=== PATIENT | female | born 1940 | race Caucasian/White ===

== ENCOUNTER → 2016-11-24 | Outpatient (CLI) | payer MEDICARE ==
[~2016-11-24] MED LIST: FLON0.053; LEVO100T60 PO; LEVO500T3 PO; XANA1TAB6 PO
[2016-11-24 10:15] LABS: AUTOMATED NEUTROPHIL # 2.8 TH/MM3 (1.8-7.7); BASOPHIL % 0.5 % (0.0-2.0); EOSINOPHIL # 0.2 TH/MM3 (0-0.4); EOSINOPHIL % 2.7 % (0.0-4.0); HEMATOCRIT 39.7 % (35.0-46.0); HEMO FLAGS DIFF FINAL; LYMPH % 35.3 % (9.0-44.0); LYMPHOCYTE # 2.1 TH/MM3 (1.0-4.8); MEAN CELL VOLUME 90.6 FL (80.0-100.0); MEAN CORPUSCULAR HEMOGLOBIN 29.9 PG (27.0-34.0); NEUT % 47.5 % (16.0-70.0); PLATELET COUNT 227 TH/MM3 (150-450); RED BLOOD COUNT 4.38 MIL/MM3 (4.00-5.30); RED CELL DISTRIBUTION WIDTH 13.5 % (11.6-17.2); WHITE BLOOD COUNT 5.9 TH/MM3 (4.0-11.0)
[2016-11-24 10:38] LABS: ALKALINE PHOSPHATASE 39 U/L (45-117); ALT (GPT) 22 U/L (10-53); ANION GAP 7 MEQ/L (5-15); AST (GOT) 15 U/L (15-37); BICARBONATE 29.6 MEQ/L (21.0-32.0); BLOOD UREA NITROGEN 20 MG/DL (7-18); CHLORIDE 100 MEQ/L (98-107); FREE T4 0.97 NG/DL (0.76-1.46); GLOMERULAR FILTRATION RATE 57 ML/MIN (>89); GLUCOSE,FASTING 93 MG/DL (74-99); HDL CHOLESTEROL 72.6 MG/DL (40.0-60.0); LDL CHOLESTEROL 179 MG/DL (0-99); POTASSIUM 4.1 MEQ/L (3.5-5.1); SODIUM (NA) 137 MEQ/L (136-145); TOTAL BILIRUBIN ADULT 0.4 MG/DL (0.2-1.0)
== END ==
LOC: CLAB 09:38
PROVIDERS: ATTEND Family Medicine
DX: E78.2 Mixed hyperlipidemia (principal); E03.9 Hypothyroidism, unspecified; F41.1 Generalized anxiety disorder; Z85.43 Personal history of malignant neoplasm of ovary
CPT/HCPCS: 36415; 80053; 80061; 84439; 84443; 85025

== ENCOUNTER → 2017-04-30 | Outpatient (CLI) | payer MEDICARE ==
[2017-04-30 13:00] LABS: HEMATOCRIT 37.9 % (35.0-46.0); MEAN CELL VOLUME 92.9 FL (80.0-100.0); MEAN CORPUSCULAR HEMOGLOBIN 30.9 PG (27.0-34.0); MEAN CORPUSCULAR HGB CONC 33.2 % (32.0-36.0); PLATELET COUNT 224 TH/MM3 (150-450); RED BLOOD COUNT 4.08 MIL/MM3 (4.00-5.30); RED CELL DISTRIBUTION WIDTH 13.6 % (11.6-17.2); REVIEW FLAG FINAL; WHITE BLOOD COUNT 5.5 TH/MM3 (4.0-11.0)
[2017-04-30 13:27] LABS: ANION GAP 8 MEQ/L (5-15); AST (GOT) 20 U/L (15-37); BICARBONATE 26.1 MEQ/L (21.0-32.0); BLOOD UREA NITROGEN 18 MG/DL (7-18); CHLORIDE 105 MEQ/L (98-107); GLOMERULAR FILTRATION RATE 55 ML/MIN (>89); GLUCOSE,FASTING 91 MG/DL (74-99); POTASSIUM 4.1 MEQ/L (3.5-5.1); SODIUM (NA) 139 MEQ/L (136-145)
[2017-04-30 13:28] LABS: ALT (GPT) 28 U/L (10-53)
[2017-04-30 13:33] LABS: ALKALINE PHOSPHATASE 40 U/L (45-117); FOLLICLE STIMULATING HORMONE 1.2 mIU/mL; LUTEINIZING HORMONE 0.2 mIU/mL; TOTAL BILIRUBIN ADULT 0.5 MG/DL (0.2-1.0)
[2017-05-03 23:53] LABS: SEX HORMONE BINDING GLOBULIN 64 nmol/L (14-73)
[2017-05-05 10:03] LABS: BIOAVAILABLE TESTOSTERONE <0.4 ng/dL; ESTRADIOL <10 pg/mL
== END ==
LOC: CLAB 12:34
DX: F52.22 Female sexual arousal disorder (principal); R68.82 Decreased libido; R53.83 Other fatigue
CPT/HCPCS: 36415; 80053; 82670; 83001; 83002; 84270; 84402; 84403; 84410; 85027

== ENCOUNTER → 2017-06-08 | Outpatient (CLI) | payer MEDICARE ==
[2017-06-08 13:44] LABS: FOLLICLE STIMULATING HORMONE 0.6 mIU/mL; LUTEINIZING HORMONE 0.2 mIU/mL
== END ==
LOC: CLAB 12:46
DX: F52.22 Female sexual arousal disorder (principal); N95.1 Menopausal and female climacteric states; E34.8 Other specified endocrine disorders; R53.83 Other fatigue; R68.82 Decreased libido
CPT/HCPCS: 36415; 82670; 83001; 83002; 84270; 84403; 84410

== ENCOUNTER → 2017-07-21 | Outpatient (CLI) | payer MEDICARE ==
[2017-07-21 13:03] LABS: FOLLICLE STIMULATING HORMONE 0.7 mIU/mL; LUTEINIZING HORMONE 0.4 mIU/mL
[2017-07-25 15:39] LABS: BIOAVAILABLE TESTOSTERONE 9.8 ng/dL
== END ==
LOC: CLAB 12:09
DX: F52.22 Female sexual arousal disorder (principal); N95.1 Menopausal and female climacteric states; E34.8 Other specified endocrine disorders; R53.83 Other fatigue; R68.82 Decreased libido
CPT/HCPCS: 36415; 82670; 83001; 83002; 84270; 84403; 84410

== ENCOUNTER → 2017-09-22 | Outpatient (CLI) | payer MEDICARE ==
[2017-09-22 11:58] LABS: LUTEINIZING HORMONE 0.3 mIU/mL
[2017-09-24 17:51] LABS: IGF BINDING PROTEIN-3 1.7 mg/L (2.5-5.7)
[2017-09-24 19:55] LABS: BIOAVAILABLE TESTOSTERONE 8.2 ng/dL; ESTRADIOL 56 pg/mL; FREE TESTOSTERONE 2.77 ng/dL (0.06-0.79); TOTAL TESTOSTERONE 154 ng/dL (8-60)
== END ==
LOC: CLAB 10:01
DX: F52.22 Female sexual arousal disorder (principal); N95.1 Menopausal and female climacteric states; E34.8 Other specified endocrine disorders; R53.83 Other fatigue; R68.82 Decreased libido
CPT/HCPCS: 36415; 82670; 83001; 83002; 83519; 84270; 84305; 84403; 84410

== ENCOUNTER → 2017-11-05 | Day surgery (SDC) | payer OTHER ==
[~2017-11-05] MED LIST changes: +ACETAMINOPHEN 1000 MG/100 ML 100 ML IV ONE; +ACETAMINOPHEN/HYDROcodone 325 MG/5 MG TAB ONE; +BALANCED SALT SOLN OPHT IRRIG 15 ML BTL ONE; +LACTATED RINGER'S 1000 ML INJ 1,000 ML ONE; +LIDOCAINE 1%/EPINEPHrine 1:100,000 SOLN 30 ML VIAL ONE; +LIDOCAINE 2%/EPINEPHrine PF 1:200,000 20ML SDV ONE; +MIDAZOLAM HCL 2 MG/2 ML VIAL ONE; +ONDANSETRON HCL 4 MG/2 ML VIAL IV PUSH ONE; +PROPOFOL 200 MG/20 ML AMP IV ONE; +ceFAZolin INJ 1,000 MG VIAL ONE
--- NOTE | 2017-11-05 11:11 | TN ---
cc: Brian Arce MD DATE OF SURGERY: 11/05/2017 PREOPERATIVE DIAGNOSES: Facial aging. Upper blepharochalasia. POSTOPERATIVE DIAGNOSIS: Facial aging. PROCEDURE: Cervicofacial rhytidectomy. SURGEON: Brian Arce MD DRUG SAFETY ASSOCIATE: Ariadna Sargent MS4 ANESTHESIA: LMA general plus a total of 180 mL of tumescent fluid. We also did some fat injections, a total of 25 mL. PROCEDURE: She was properly consented, marked, anesthetized. The skin was sterilized with Microcyn and sterile draping was applied. Local anesthetic was infiltrated. Harvesting of the fat was done from the lower abdomen for a grand total of approximately 80 mL, suitable for injection approximately 25 of those that were applied systematically on the episcopal, nasolabial fold, marionette lines and chin area. I proceeded and elevated the cervicofacial flap through previous incisions and plicate the SMAS with 4-0 Mersilene superiorly and the platysma muscle laterally. The contralateral side was approached exactly in the same manner. With minimal tension the wounds were closed and utilizing on the preauricular 5-0 Monocryl suture and 5-0 fast absorbing gut and postauricular 3-0 Monocryl suture and surgical brady on the hair-bearing scalp. Compression dressings were applied. It is to be mentioned the patient also underwent upper blepharoplasty. The procedure for this is as the patient was marked in the upright position in the holding area, I infiltrated the excessive skin in the upper eyelid with ____ Xylocaine, lidocaine with epinephrine, and excessive skin was removed with the use of a 15 blade and the closures were done utilizing 5-0 fast absorbing gut. Antibiotic ointment was applied. The patient tolerated the procedure well. MD LYNDA AntoineZ/TL/ , 10:31 AM , 10:55 AM
== END | disposition home or self-care (01) ==
LOC: ESDC 06:21
PROVIDERS: ATTEND Plastic Surgery
DX: Z41.1 Encounter for cosmetic surgery (principal)
CPT/HCPCS: 00103; 00300; 11954; 15822; 15828; J0131; J0690; J2250; J2405; J3010; J7120

== ENCOUNTER → 2017-12-04 | Outpatient (CLI) | payer MEDICARE ==
[~2017-12-04] MED LIST changes: -ACETAMINOPHEN 1000 MG/100 ML 100 ML IV ONE; -ACETAMINOPHEN/HYDROcodone 325 MG/5 MG TAB ONE; -BALANCED SALT SOLN OPHT IRRIG 15 ML BTL ONE; -LACTATED RINGER'S 1000 ML INJ 1,000 ML ONE; -LIDOCAINE 1%/EPINEPHrine 1:100,000 SOLN 30 ML VIAL ONE; -LIDOCAINE 2%/EPINEPHrine PF 1:200,000 20ML SDV ONE; -MIDAZOLAM HCL 2 MG/2 ML VIAL ONE; -ONDANSETRON HCL 4 MG/2 ML VIAL IV PUSH ONE; -PROPOFOL 200 MG/20 ML AMP IV ONE; -ceFAZolin INJ 1,000 MG VIAL ONE
[2017-12-04 14:20] LABS: LUTEINIZING HORMONE LESS THAN 0.2 mIU/mL
[2017-12-08 15:28] LABS: FREE TESTOSTERONE 2.02 ng/dL (0.06-0.79)
== END ==
LOC: CLAB 13:23
DX: F52.22 Female sexual arousal disorder (principal); R68.82 Decreased libido; R53.83 Other fatigue; E34.8 Other specified endocrine disorders; N95.1 Menopausal and female climacteric states
CPT/HCPCS: 36415; 82670; 83001; 83002; 84270; 84403; 84410